=== PATIENT | female | born 1955 | race Caucasian/White ===

== ENCOUNTER 2024-08-26 06:25 | Day surgery (SDC) | payer MEDICARE, SELFPAY | END 2024-08-26 12:34 | disposition home or self-care (01) | LOC: GI 06:25 | PROVIDERS: ATTENDING PHYSICIAN Internal Medicine Gastroenterology | DX: Z12.11 Encounter for screening for malignant neoplasm of colon (principal); K64.8 Other hemorrhoids; K56.699 Other intestinal obstruction unspecified as to partial versus complete obstruction; K57.30 Diverticulosis of large intestine without perforation or abscess without bleeding; D12.2 Benign neoplasm of ascending colon; K63.5 Polyp of colon | CPT/HCPCS: 45380; 88305 ==